=== PATIENT | male | born 2000 | race Caucasian/White ===

== ENCOUNTER 2023-06-11 13:35 | Emergency (ER) | payer OTHER ==
[~2023-06-11] VITALS: Ht 177.8 cm; Wt 84.8 kg
[~2023-06-11 13:35] MED LIST: CEPH250A PO; CEPH250SUA PO; FENO160 PO; HYDACE5325 PO; METPHE10; SULTRIEL PO; SULTRISS PO; TRAM50 PO
[2023-06-11 13:59] VITALS: BP 136/88
[2023-06-11 15:05] LABS: Hemoglobin 14.9 g/dL (13.5-17.5); Mean Corpuscular HGB 30.9 pg (26.0-34.0); Mean Corpuscular HGB Conc 34.7 g/dL (31.5-36.5); Mean Corpuscular Volume 89 fL (80-100); Mean Platelet Volume 10.1 fL (9.1-12.4); Platelet Count 226 K/mm3 (150-400); RDW Coefficient Variation 12.3 % (11.7-14.2); RDW Standard Deviation 40.4 fL (35.1-46.3); Red Blood Cell Count 4.82 M/mm3 (4.30-5.90); White Blood Cell Count 16.27 K/mm3 (4.00-11.30)
[2023-06-11 15:24] LABS: BAND PERCENT MAN 2 % (0-8); BASOPHILS PERCENT MAN 0 % (0-2); EOSINOPHILS PERCENT MAN 0 % (0-6); LYMPHOCYTES ABSOLUTE MAN 0.65 K/mm3 (0.84-5.20); LYMPHOCYTES PERCENT MAN 4 % (21-46); MONOCYTES PERCENT MAN 8 % (4-13); NEUTROPHILS ABSOLUTE MAN 14.31 K/mm3 (1.96-9.15); SEG NEUTROPHILS PERCENT MAN 86 % (41-73); TOTAL CELLS COUNTED 100
[2023-06-11 15:33] LABS: Albumin/Globulin Ratio 0.9 (0.8-1.8); Bilirubin, Total 1.2 mg/dL (0.1-1.0); Bun/Creatinine Ratio 14.7 (12.0-20.0); Calcium, Blood 8.9 mg/dL (8.5-10.1); Creatinine, Blood 0.88 mg/dL (0.60-1.20); Globulin, Blood 4.5 g/dL (2.2-4.0); Potassium, Blood 3.8 mmol/L (3.5-5.5); Total Protein, Blood 8.5 g/dL (6.4-8.2)
[2023-06-11 15:50] LABS: Influenza A, PCR NEGATIVE (NEGATIVE); Influenza B, PCR NEGATIVE (NEGATIVE); Resp Syncytial Virus, PCR NEGATIVE (NEGATIVE); SARS-Cov-2 (COVID-19) PCR, MMC NEGATIVE (NEGATIVE)
== END 2023-06-11 16:47 | disposition home or self-care (01) ==
LOC: ER 13:35
PROVIDERS: Student in an Organized Health Care Education/Training Program
DX: J06.9 Acute upper respiratory infection, unspecified (principal); Z20.822 Contact with and (suspected) exposure to COVID-19
CPT/HCPCS: 0241U; 71045; 80053; 85025; 96374; 99284-25; J1885

== ENCOUNTER 2023-06-17 12:13 | Inpatient (IN) | payer OTHER ==
[~2023-06-17] VITALS: Ht 177.8 cm; Wt 81.5 kg
[~2023-06-17 12:13] MED LIST changes: -CEFP200 PO
[2023-06-17 13:17] LABS: Influenza A, PCR NEGATIVE (NEGATIVE); Influenza B, PCR NEGATIVE (NEGATIVE); Resp Syncytial Virus, PCR NEGATIVE (NEGATIVE); SARS-Cov-2 (COVID-19) PCR, MMC NEGATIVE (NEGATIVE)
[2023-06-17 14:06] LABS: Source, Urine Clean Catch
[2023-06-17 14:14] LABS: Blood, Urine 1+ (Neg); Color, Urine Amber (P-Yellow); Glucose Qualitative, Urine Neg (Neg); Ketones, Urine Neg (Neg); Leukocyte Esterase, Urine 2+ (Neg); Nitrite, Urine Neg (Neg); Protein, Urine 2+ (Neg); Urobilinogen, Urine 2+ (Normal)
[2023-06-17 14:28] LABS: Appearance, Urine Hazy (Clear); Bilirubin, Urine 3+ (Neg)
[2023-06-17 14:30] LABS: Granular Casts 0-2 /lpf (0); Mucus Light (0-Heavy); WBC Cast 0-2 /lpf (0)
[2023-06-17 14:31] LABS: Red Blood Cells, Urine 0-2 /hpf (0-2); Squamous Epithelial Cells Rare /hpf (Few)
[2023-06-17 14:32] LABS: Amorphous Light (0-Heavy); Bacteria Mod /hpf; Transitional Epithelial Cells Rare /hpf (0-Rare)
[2023-06-17 15:40] LABS: Bilirubin, Direct 5.4 mg/dL (0.0-0.3); Ethanol (Alcohol), Blood, Med <3 mg/dL
[2023-06-17 16:00] LABS: International Normalized Ratio 2.05; Prothrombin Time Results 20.7 Sec (9.7-11.5)
[2023-06-17 21:43] VITALS: BP 118/70
--- NOTE | 2023-06-17 21:45 | NUR ---
ADMIT NOTE; THE PT ARRIVES FROM THE ED VIA WHEELCHAIR. THE PT IS AXO X4 AND ARRIVES W/ IV ROCEPHIN INFUSING AND HIS AUNT AT SIDE. THE PT IS ABLE TO INDEPENDETLY AMBULATE TO THE BED. THE PT DOES NOT APPEAR TO BE IN ACUTE DISTRESS UPON ADMIT. THE PT DENIES ANY PAIN, CHEST PAIN/PRESSURE OR SOB. CURRENTLY THE PT IS RESTING IN BED WITH THE BED IN THE LOWEST POSITION AND THE CALL LIGHT AT BEDSIDE. FIRE EDUCATION PROVIDED. THE PT DENIES HAVING ANY POSSIBLE IGNITION SOURCES IN POSSESSION AT THIS TIME.
[2023-06-18 02:20] LABS: U Amphetamine Screen Not Detected; U Barbituate Screen Not Detected; U Benzodiazapine Screen Not Detected; U Buprenorphine Screen Not Detected; U Cannabinoids Screen DETECTED; U Cocaine Screen Not Detected; U Methadone Screen Not Detected; U Methamphetamine Screen Not Detected; U Opiates Screen DETECTED; U Oxycodone Screen Not Detected; U Phencyclidine Screen Not Detected; U Propoxyphene Screen Not Detected
[2023-06-18 05:07] VITALS: BP 122/75
[2023-06-18 05:36] LABS: BASOPHILS ABSOLUTE AUTO 0.06 K/mm3 (0.00-0.23); BASOPHILS PERCENT AUTO 0 % (0-2); EOSINOPHILS ABSOLUTE AUTO 0.67 K/mm3 (0.00-0.68); EOSINOPHILS PERCENT AUTO 4 % (0-6); Hematocrit 31.6 % (37.0-53.0); IMMATURE GRAN ABSOLUTE AUTO 0.29 K/mm3 (0.00-0.10); IMMATURE GRAN PERCENT AUTO 2 % (0-1); LYMPHOCYTES ABSOLUTE AUTO 0.53 K/mm3 (0.84-5.20); LYMPHOCYTES PERCENT AUTO 3 % (21-46); MONOCYTES ABSOLUTE AUTO 0.69 K/mm3 (0.16-1.47); MONOCYTES PERCENT AUTO 4 % (4-13); Mean Corpuscular HGB 30.4 pg (26.0-34.0); Mean Corpuscular HGB Conc 34.8 g/dL (31.5-36.5); Mean Corpuscular Volume 87 fL (80-100); Mean Platelet Volume 9.7 fL (9.1-12.4); NEUTROPHILS ABSOLUTE AUTO 15.22 K/mm3 (1.96-9.15); NEUTROPHILS PERCENT AUTO 87 % (41-73); Platelet Count 344 K/mm3 (150-400); RDW Coefficient Variation 13.4 % (11.7-14.2); RDW Standard Deviation 43.3 fL (35.1-46.3); Red Blood Cell Count 3.62 M/mm3 (4.30-5.90); White Blood Cell Count 17.46 K/mm3 (4.00-11.30)
[2023-06-18 06:00] LABS: International Normalized Ratio 2.25; Prothrombin Time Results 22.6 Sec (9.7-11.5)
[2023-06-18 06:01] LABS: Albumin/Globulin Ratio 0.4 (0.8-1.8); Bilirubin, Total 5.6 mg/dL (0.1-1.0); Bun/Creatinine Ratio 17.5 (12.0-20.0); Calcium, Blood 7.7 mg/dL (8.5-10.1); Creatinine, Blood 0.57 mg/dL (0.60-1.20); Globulin, Blood 3.9 g/dL (2.2-4.0); Potassium, Blood 3.3 mmol/L (3.5-5.5); Thyroid Stimulating Hormone 0.21 uIU/mL (0.360-4.800); Total Protein, Blood 5.6 g/dL (6.4-8.2)
[2023-06-18 06:02] LABS: Albumin, Blood 1.7 g/dL (3.4-5.0)
--- NOTE | 2023-06-18 07:20 | NUR ---
SHIFT SUMMARY; NO ACUTE CHANGES OVERNIGHT. THE PT IS AXO X4 AND INDEPENDENT IN THE ROOM. THE PT DOES HAVE AUTISM AND CAN BECOME OVERWHELMED AT TIMES. THE PT SLEPT FOR THE MAJORITY OF THE NIGHT. THE PT DENIES ANY SOB, CHEST PAIN/PRESSURE, PAIN OR N/V. CURRENTLY THE PT IS SLEEPING IN BED WITH THE BED IN THE LOWEST POSITION AND THE CALL LIGHT AT BEDSIDE. FIRE SAFETY MAINTAINED T/O THE NIGHT.
[2023-06-18 07:54] VITALS: BP 136/92
--- NOTE | 2023-06-18 17:41 | NUR ---
SHIFT SUMMARY: PATIENT A&OX4. ANXIOUS AT TIMES, PLEASANT AND COOPERATIVE c CARE. DENIES CP/PRESSURE AND DIZZINESS. REPORTS PAIN TO LOWER BACK 04/10, MEDICATED X1 c IV TORADOL AND APPLIED HEATING PAD c GREAT EFFECT. PATIENT REPORTS "AFTER I ATE THE CUSTARD AT LUNCH I'M FEELING NAUSEOUS BUT NO VOMITING." MEDICATED X1 c IV ZOFRAN c GOOD EFFECT. PATIENT RECEIVED IV ABX AND PO MEDS PER EMAR. PATIENT HAS BEEN AMBULATING IN ROOM INDEPENDENTLY T/O SHIFT. FAMILY IN ROOM ON AND OFF T/O THE DAY. VITAL SIGNS REVIEWED. PIV TO LAC INFUSING NS AT 100 MLS/HR, AND PIV TO RAC SALINE LOCKED. CALL LIGHT IN REACH.
[2023-06-18 20:16] VITALS: BP 118/73
--- NOTE | 2023-06-19 04:41 | NUR ---
SHIFT SUMMARY; NO ACUTE CHANGES OVERNIGHT. THE PT IS AXO X4 AND INDEPENDENT IN THE ROOM. THE PT WAS NAUSEOUS AT THE BEGINNING OF SHIFT AND DID VOMIT TWICE. THE PT WAS ALSO ABLE TO TAKE A SHOWER AT THE BEGINNING OF SHIFT. THE PT REPORTED A SOAR THROAT BUT BELIEVES THAT IS R/T THROWING UP. THE PT HAS OTHERWISE DENIED ANY SOB, CHEST PAIN/PRESSURE OR GENERALIZED PAIN. CURRENTLY THE PT IS SLEEPING IN BED WITH HIS MOM AT BEDSIDE, THE BED IN THE LOWEST POSITION AND THE CALL LIGHT WITHIN REACH. FIRE SAFETY MAINTAINED T/O THE SHIFT.
[2023-06-19 05:36] VITALS: BP 125/81
[2023-06-19 06:14] LABS: BASOPHILS ABSOLUTE AUTO 0.04 K/mm3 (0.00-0.23); BASOPHILS PERCENT AUTO 0 % (0-2); EOSINOPHILS ABSOLUTE AUTO 0.69 K/mm3 (0.00-0.68); EOSINOPHILS PERCENT AUTO 4 % (0-6); Hematocrit 30.7 % (37.0-53.0); Hemoglobin 10.7 g/dL (13.5-17.5); IMMATURE GRAN ABSOLUTE AUTO 0.39 K/mm3 (0.00-0.10); IMMATURE GRAN PERCENT AUTO 3 % (0-1); LYMPHOCYTES ABSOLUTE AUTO 0.73 K/mm3 (0.84-5.20); LYMPHOCYTES PERCENT AUTO 5 % (21-46); MONOCYTES ABSOLUTE AUTO 0.86 K/mm3 (0.16-1.47); MONOCYTES PERCENT AUTO 6 % (4-13); Mean Corpuscular HGB 30.6 pg (26.0-34.0); Mean Corpuscular HGB Conc 34.9 g/dL (31.5-36.5); Mean Corpuscular Volume 88 fL (80-100); Mean Platelet Volume 9.8 fL (9.1-12.4); NEUTROPHILS ABSOLUTE AUTO 12.83 K/mm3 (1.96-9.15); NEUTROPHILS PERCENT AUTO 83 % (41-73); Platelet Count 405 K/mm3 (150-400); RDW Coefficient Variation 13.8 % (11.7-14.2); White Blood Cell Count 15.54 K/mm3 (4.00-11.30)
[2023-06-19 06:26] LABS: International Normalized Ratio 1.69; Prothrombin Time Results 17.2 Sec (9.7-11.5)
[2023-06-19 06:41] LABS: Albumin, Blood 1.8 g/dL (3.4-5.0); Albumin/Globulin Ratio 0.4 (0.8-1.8); Bilirubin, Total 5.8 mg/dL (0.1-1.0); Bun/Creatinine Ratio 14.1 (12.0-20.0); Creatinine, Blood 0.57 mg/dL (0.60-1.20); Potassium, Blood 3.5 mmol/L (3.5-5.5); Total Protein, Blood 5.8 g/dL (6.4-8.2)
[2023-06-19 07:26] VITALS: BP 121/65
[2023-06-19 08:08] LABS: HBSAG SCREEN Negative (Negative); HCV AB Non Reactive (Non Reactive); HEP A AB, IGM Negative (Negative); HEP B CORE AB, IGM Negative (Negative)
[2023-06-19 11:08] LABS: HIV AB/P24 AG SCREEN Non Reactive (Non Reactive)
[2023-06-19 14:34] VITALS: BP 123/70
[2023-06-19 16:09] LABS: EBV AB VCA, IGG <18.0 U/mL (0.0-17.9); EBV AB VCA, IGM <36.0 U/mL (0.0-35.9); EBV NUCLEAR ANTIGEN AB, IGG <18.0 U/mL (0.0-17.9)
--- NOTE | 2023-06-19 16:42 | NUR ---
SHIFT SUMMARY A&OX4, COOPERATIVE WITH CARE, TALKATIVE. DENIES CP/PRESSURE, HEADACHE, DIZZINESS OR SOB. NO ACUTE CHANGES THIS SHIFT. MEDICATED WITH ZOFRAN IV AT 1130 AFTER COMPLAINTS OF ABD ACHES, THEN PT VOMITTED AT LUNCH. DENIES ANY PROBLEMS SINCE. PATIENT IS HOPEFUL ABOUT FEELING BETTER. HIS SKIN IS LESS YELLOW. CURRENTLY WAITING ON LABS THAT WERE SENT OUT. BURDEN TALKED ABOUT POTENTIAL DISCHARGE WITH OUTPATIENT TX. DISCONTINUED IV FLUIDS AND ENCOURAGING PATIENT TO INCREASE ORAL INTAKE FOR HYDRATION. PATIENT IS CURRENTLY SITTING IN BED WATCHING TV. FAMILY IN THE ROOM. CALL LIGHT WITHIN REACH.
[2023-06-19 19:09] VITALS: BP 120/70
[2023-06-20 03:03] VITALS: BP 126/82
[2023-06-20 04:57] LABS: BASOPHILS ABSOLUTE AUTO 0.09 K/mm3 (0.00-0.23); BASOPHILS PERCENT AUTO 1 % (0-2); EOSINOPHILS ABSOLUTE AUTO 0.64 K/mm3 (0.00-0.68); EOSINOPHILS PERCENT AUTO 4 % (0-6); Hematocrit 31.9 % (37.0-53.0); Hemoglobin 10.7 g/dL (13.5-17.5); IMMATURE GRAN ABSOLUTE AUTO 0.24 K/mm3 (0.00-0.10); IMMATURE GRAN PERCENT AUTO 2 % (0-1); LYMPHOCYTES ABSOLUTE AUTO 0.53 K/mm3 (0.84-5.20); LYMPHOCYTES PERCENT AUTO 4 % (21-46); MONOCYTES ABSOLUTE AUTO 0.91 K/mm3 (0.16-1.47); MONOCYTES PERCENT AUTO 6 % (4-13); Mean Corpuscular HGB 30.2 pg (26.0-34.0); Mean Corpuscular HGB Conc 33.5 g/dL (31.5-36.5); Mean Corpuscular Volume 90 fL (80-100); Mean Platelet Volume 9.8 fL (9.1-12.4); NEUTROPHILS ABSOLUTE AUTO 12.14 K/mm3 (1.96-9.15); NEUTROPHILS PERCENT AUTO 84 % (41-73); Platelet Count 462 K/mm3 (150-400); RDW Coefficient Variation 14.1 % (11.7-14.2); RDW Standard Deviation 47.1 fL (35.1-46.3); Red Blood Cell Count 3.54 M/mm3 (4.30-5.90); White Blood Cell Count 14.55 K/mm3 (4.00-11.30)
[2023-06-20 05:26] LABS: Albumin, Blood 1.9 g/dL (3.4-5.0); Albumin/Globulin Ratio 0.5 (0.8-1.8); Bilirubin, Total 6.2 mg/dL (0.1-1.0); Bun/Creatinine Ratio 11.7 (12.0-20.0); Calcium, Blood 7.8 mg/dL (8.5-10.1); Creatinine, Blood 0.6 mg/dL (0.60-1.20); Phosphorus, Blood 3.9 mg/dL (2.5-4.9); Potassium, Blood 3.6 mmol/L (3.5-5.5); Total Protein, Blood 5.9 g/dL (6.4-8.2)
--- NOTE | 2023-06-20 06:12 | NUR ---
SUMMARY: PT A/OX4, IS INDEPENDENT IN ROOM AND CALLS APPROPRIATELY TO SPECIFY NEEDS. HE REPORTS FEELING MUCH BETTER AND DENIED NAUSEA, PAIN AND ALL OTHER COMPLAINTS. ANTIBIOTICS RECIEVED PER EMAR. SEND OUT LABS STILL PENDING. NO ACUTE CHANGES, VSS/AFEBRILE. WCTM AND REPORT TO DAY RN.
[2023-06-20 07:46] VITALS: BP 124/68
[2023-06-20] MEDS ORDERED: CEFP200 PO (11:04)
[2023-06-20] MEDS ORDERED: TRAM50 PO (11:48)
--- NOTE | 2023-06-20 11:56 | NUR ---
DISCHARGE NO ACUTE EVENTS THIS SHIFT. DISCHARGE PACKET REVIEWED WITH PATIENT AND MOTHER, NO QUESTIONS OR CONCERNS REPORTED. EDUCATION GIVEN ABOUT NEW MEDS AND NAUSEA. PATIENT DISCHARGED BY FOOT, REFUSED WHEELCHAIR TRANSFER, AT 1155.
== END 2023-06-20 12:03 | disposition home or self-care (01) | DRG 872 ==
LOC: ER 12:13 → MEDS 20:58 → ENPENDDIS 06-20 11:39 → MEDS 06-20 12:03
PROVIDERS: Family Medicine; Internal Medicine; Nurse Practitioner Acute Care; Student in an Organized Health Care Education/Training Program; ADMIT Internal Medicine
DX: A41.9 Sepsis, unspecified organism (principal); N39.0 Urinary tract infection, site not specified; B17.9 Acute viral hepatitis, unspecified; E78.5 Hyperlipidemia, unspecified; E80.6 Other disorders of bilirubin metabolism; R74.01 Elevation of levels of liver transaminase levels; E05.90 Thyrotoxicosis, unspecified without thyrotoxic crisis or storm; N28.89 Other specified disorders of kidney and ureter; G47.00 Insomnia, unspecified; F12.90 Cannabis use, unspecified, uncomplicated; R94.5 Abnormal results of liver function studies; E86.0 Dehydration; E87.6 Hypokalemia; E78.1 Pure hyperglyceridemia; Z20.822 Contact with and (suspected) exposure to COVID-19; Z79.899 Other long term (current) drug therapy; Z88.8 Allergy status to other drugs, medicaments and biological substances; Z98.890 Other specified postprocedural states
CPT/HCPCS: 0241U; 36415; 71045; 74170; 80053; 80074; 81001; 82140; 82248; 82390; 83520; 83605; 83690; 83735; 84100; 84439; 84443; 84481; 84484; 85025; 85610; 86015; 86644; 86645; 86664; 86665; 86696; 86708; 87040; 87086; 87389; 96361; 96365-59; 96375-59; 96376-59; 99285-25; A9270; G0480; J0696; J1170; J1885; J2405; J7030; J7120; Q9967

== ENCOUNTER → 2023-06-17 | Outpatient (CLI) | payer OTHER ==
[~2023-06-17] MED LIST changes: +CEFP200 PO
[2023-06-17 10:12] LABS: BASOPHILS ABSOLUTE AUTO 0.11 K/mm3 (0.00-0.23); BASOPHILS PERCENT AUTO 1 % (0-2); EOSINOPHILS ABSOLUTE AUTO 0.47 K/mm3 (0.00-0.68); EOSINOPHILS PERCENT AUTO 2 % (0-6); Hematocrit 37.7 % (37.0-53.0); Hemoglobin 13.4 g/dL (13.5-17.5); IMMATURE GRAN ABSOLUTE AUTO 0.31 K/mm3 (0.00-0.10); IMMATURE GRAN PERCENT AUTO 1 % (0-1); LYMPHOCYTES ABSOLUTE AUTO 0.56 K/mm3 (0.84-5.20); LYMPHOCYTES PERCENT AUTO 3 % (21-46); MONOCYTES ABSOLUTE AUTO 0.67 K/mm3 (0.16-1.47); MONOCYTES PERCENT AUTO 3 % (4-13); Mean Corpuscular HGB 30.4 pg (26.0-34.0); Mean Corpuscular HGB Conc 35.5 g/dL (31.5-36.5); Mean Corpuscular Volume 86 fL (80-100); Mean Platelet Volume 9.5 fL (9.1-12.4); NEUTROPHILS ABSOLUTE AUTO 19.53 K/mm3 (1.96-9.15); NEUTROPHILS PERCENT AUTO 90 % (41-73); Platelet Count 395 K/mm3 (150-400); RDW Coefficient Variation 12.8 % (11.7-14.2); RDW Standard Deviation 39.8 fL (35.1-46.3); Red Blood Cell Count 4.41 M/mm3 (4.30-5.90); White Blood Cell Count 21.65 K/mm3 (4.00-11.30)
[2023-06-17 10:23] LABS: Albumin, Blood 2.4 g/dL (3.4-5.0); Albumin/Globulin Ratio 0.5 (0.8-1.8); Bilirubin, Total 7.1 mg/dL (0.1-1.0); Bun/Creatinine Ratio 11.4 (12.0-20.0); Calcium, Blood 8.8 mg/dL (8.5-10.1); Creatinine, Blood 0.88 mg/dL (0.60-1.20); Globulin, Blood 5.1 g/dL (2.2-4.0); Potassium, Blood 3.3 mmol/L (3.5-5.5); Total Protein, Blood 7.5 g/dL (6.4-8.2)
== END ==
LOC: LAB 10:07 → LAB SHORT 10:07
PROVIDERS: Family Medicine
DX: R17 Unspecified jaundice (principal)
CPT/HCPCS: 80053; 83690; 85025